=== PATIENT | male | born 1970 | race Caucasian/White ===

== ENCOUNTER 2016-09-05 11:06 | Inpatient (IN) | payer OTHER ==
[~2016-09-05] VITALS: Ht 180.3 cm; Wt 125.9 kg
[~2016-09-05 11:06] MED LIST: ACET500T3 PO; ATOR20TA15 PO; BUPR100T PO; CENTTAB PO; CINN500T PO; EMPA1TAB PO; LABE100T2 PO; LACTATED RINGER'S 1000 ML INJ 1,000 ML IV ONE; LISI20TA3 PO; METF500T PO; ONDANSETRON HCL 4 MG/2 ML VIAL IV PUSH ONE; PROPOFOL 200 MG/20 ML AMP IV ONE; VICT18IN SQ
[2016-09-05 11:30] LABS: HEMATOCRIT 44.1 % (39.0-51.0); MEAN CELL VOLUME 84.6 FL (80.0-100.0); MEAN CORPUSCULAR HEMOGLOBIN 28.9 PG (27.0-34.0); MEAN CORPUSCULAR HGB CONC 34.1 % (32.0-36.0); PLATELET COUNT 380 TH/MM3 (150-450); RED BLOOD COUNT 5.22 MIL/MM3 (4.50-5.90); RED CELL DISTRIBUTION WIDTH 13.1 % (11.6-17.2); REVIEW FLAG FINAL; WHITE BLOOD COUNT 10.2 TH/MM3 (4.0-11.0)
[2016-09-05] MEDS ORDERED: EXCETAB2 PO (11:54)
[2016-09-05 11:56] VITALS: BP 102/73; PULSE 79; RESP 16; TEMP 98.7; O2SAT 97
[2016-09-05] MEDS ORDERED: MIDAZOLAM HCL 2 MG/2 ML VIAL ONE (12:41)
[2016-09-05] MEDS ORDERED: FAMOTIDINE 20 MG/2 ML VIAL ONE (12:41)
[2016-09-05] MEDS ORDERED: ACETAMINOPHEN 1000 MG/100 ML VIAL IV ONE (12:41)
[2016-09-05] MEDS ORDERED: SODIUM CHLOR 0.9% 250 ML INJ 250 ML ONE (13:20)
[2016-09-05] MEDS ORDERED: VANCOMYCIN HCL 1000 MG VIAL ONE (13:20)
[2016-09-05] MEDS ORDERED: BUPIVACAINE/EPINEPHRINE 0.25% PF 30 ML VIAL ONE (14:21)
[2016-09-05] MEDS ORDERED: LACTATED RINGER'S 1000 ML INJ 1,000 ML ONE (15:05)
--- NOTE | 2016-09-05 16:21 | RADRPT ---
EXAM DATE/TIME: 09/05/2016 15:57 [facility] COMPARISON: No previous studies available for comparison. INDICATIONS : Post operative right knee. MEDICAL HISTORY : None. SURGICAL HISTORY : None. ENCOUNTER: Initial ACUITY: 1 day PAIN SCORE: Non-responsive. LOCATION: Right knee. FINDINGS: There is small amount of air in the knee. Lungs otherwise anatomic. CONCLUSION: Tracer in the otherwise negative Jesus Gurrola MD FACR on September 05, 2016 at 16:16 Board Certified Radiologist. This report was verified electronically.
[2016-09-05 16:37] VITALS: PULSE 88
[2016-09-05] MEDS ORDERED: MORPHINE SULFATE 4 MG/ML INJ ONE ×3 (16:41→17:03)
[2016-09-05] MEDS ORDERED: fentaNYL CITRATE 250 MCG/5 ML AMP ONE (16:46)
[2016-09-05] MEDS ORDERED: *HYDROmorphone PF 1 MG VIAL PERIprocedural Use ONLY ONE (17:22)
[2016-09-05] MEDS ORDERED: ACETAMINOPHEN 500 MG CPLT PO PRN (17:30)
[2016-09-05] MEDS ORDERED: PROMETHAZINE INJ 25 MG/ML VIAL IM PRN (17:30)
[2016-09-05] MEDS ORDERED: *Lactated Ringer's INJ 1,000 ML ONE (17:30)
[2016-09-05 18:00] VITALS: PULSE 87
[2016-09-05 20:00] VITALS: BP 110/61; PULSE 110; RESP 16; TEMP 96.6; O2SAT 94
[2016-09-05] MEDS: LABETALOL HCL 100 MG TAB PO SCH (21:01)
[2016-09-05] MEDS: metFORMIN HCL 500 MG TAB PO SCH (21:01)
[2016-09-05] MEDS: buPROPion HCL 100 MG SUSTAINED RELEASE TAB PO SCH (21:01)
[2016-09-05] MEDS: ACETAMINOPHEN/HYDROcodone 325 MG/7.5 MG TAB PO PRN (21:02)
[2016-09-05] MEDS: VANCOMYCIN 500 MG/NS 100 ML IV SCH ×2 (22:44)
[2016-09-05] MEDS: MORPHINE SULFATE 8 MG/ML INJ IM PRN (22:46)
[2016-09-06 00:35] VITALS: BP 126/57; PULSE 89; RESP 17; TEMP 98.2; O2SAT 92
[2016-09-06] MEDS: ACETAMINOPHEN/HYDROcodone 325 MG/7.5 MG TAB PO PRN (03:09)
[2016-09-06 03:12] VITALS: BP 118/73; PULSE 65; RESP 18; TEMP 97; O2SAT 95
[2016-09-06] MEDS: VANCOMYCIN 500 MG/NS 100 ML IV SCH ×4 (06:23→13:00)
[2016-09-06] MEDS: MORPHINE SULFATE 8 MG/ML INJ IM PRN ×3 (06:28→19:45)
[2016-09-06 08:00] VITALS: BP 118/78; PULSE 80; RESP 17; TEMP 97.8; O2SAT 95
[2016-09-06] MEDS: metFORMIN HCL 500 MG TAB PO SCH ×2 (08:31→17:42)
[2016-09-06] MEDS: LABETALOL HCL 100 MG TAB PO SCH ×2 (08:31→19:46)
[2016-09-06] MEDS: MULTIVITAMINS/MINERALS THERAPEUTIC TAB PO SCH (08:31)
[2016-09-06] MEDS: ATORVASTATIN 20 MG TAB PO SCH (08:31)
[2016-09-06] MEDS: buPROPion HCL 100 MG SUSTAINED RELEASE TAB PO SCH ×2 (08:32→19:46)
[2016-09-06] MEDS: LISINOPRIL 20 MG TAB PO SCH (08:32)
[2016-09-06] MEDS ORDERED: HYDROCHLOROTHIAZIDE 25 MG TAB PO SCH (09:00)
[2016-09-06] MEDS ORDERED: EMPAGLIFLOZIN 10 MG PO SCH (09:00)
[2016-09-06] MEDS ORDERED: LIRAGLUTIDE 18 MG/3 ML SQ SCH (09:00)
--- NOTE | 2016-09-06 10:06 | EKG ---
Date Performed: 09/05/2016 Time Performed: 13:20:18 PTAGE: 46 years EKG: Sinus rhythm NORMAL ECG NO PREVIOUS TRACING DOCTOR: Kamlesh Stacy Interpretating Date/Time 09/06/2016 10:03:19
[2016-09-06 11:47] VITALS: BP 118/66; PULSE 82; RESP 17; TEMP 97.6; O2SAT 93
--- NOTE | 2016-09-06 13:17 | PD.ORT.PN ---
Subjective Post Op Day #: 1 Subjective Remarks Patient has been painful. Not up yet. Physical therapy to work with patient later today Objective Vitals Vital Signs Date Time Temp Pulse Resp B/P Pulse Ox O2 Delivery O2 Flow Rate FiO2 09/06/16 11:47 97.6 82 17 118/66 93 09/06/16 08:00 97.8 80 17 118/78 95 09/06/16 04:00 Room Air 09/06/16 03:12 97.0 65 18 118/73 95 09/06/16 00:35 98.2 89 17 126/57 92 09/06/16 00:00 Room Air 09/05/16 20:00 96.6 110 16 110/61 94 09/05/16 20:00 Room Air 09/05/16 18:30 14 130/69 97 Room Air 09/05/16 18:15 85 14 123/77 97 Room Air 09/05/16 18:00 87 09/05/16 18:00 97.7 87 14 120/74 99 Nasal Cannula 2 09/05/16 17:45 84 14 119/65 98 Nasal Cannula 2 09/05/16 17:30 82 14 136/80 97 Nasal Cannula 2 09/05/16 17:15 79 14 136/77 98 Nasal Cannula 2 09/05/16 17:11 14 09/05/16 17:00 83 14 115/71 100 Nasal Cannula 2 09/05/16 16:45 85 14 123/79 97 Nasal Cannula 2 09/05/16 16:37 88 09/05/16 16:37 97.8 88 14 124/81 96 Nasal Cannula 2 I/O 09/05/16 09/05/16 09/05/16 09/06/16 09/06/16 09/06/16 07:00 15:00 23:00 07:00 15:00 23:00 Intake Total 2930 ml 720 ml Output Total 1750 ml 2300 ml Balance 1180 ml -1580 ml Intake Oral 480 ml 720 ml IV Total 100 ml Other 2350 ml Output Urine Total 1700 ml 2300 ml Estimated Blood Loss 50 ml # Voids 0 # Bowel Movements 0 0 Result Diagram: 09/05/16 1116 Imaging Last Impressions Knee X-Ray 09/05/16 0000 Signed Impressions: Service Date/Time: Monday, September 05, 2016 15:57 - CONCLUSION: Tracer in the otherwise negative Jesus G. Miles, MD FACR Objective Remarks Dressing changed today. Both incisions look good. Motion not tested today. N- V distally is intact. Assessment & Plan Ortho Post Op Day #: 1 Problem List: (1) ACL sprain Plan: Rehab today. Anticipate discharge home tomorrow. Will change to Tylenol #3 for pain. Jaleel Gillis MD Sep 06, 2016 13:17
[2016-09-06] MEDS: ACETAMINOPHEN/CODEINE 300 MG/30 MG TAB PO PRN ×2 (15:10→21:40)
[2016-09-06 15:57] VITALS: BP 115/73; PULSE 97; RESP 19; TEMP 95.3; O2SAT 98
[2016-09-06 20:00] VITALS: BP 123/65; PULSE 104; RESP 16; TEMP 98.9; O2SAT 94
[2016-09-07] VITALS: BP 113/67; PULSE 96; RESP 17; TEMP 98.2; O2SAT 94
[2016-09-07 08:00] VITALS: BP 104/66; PULSE 92; RESP 20; TEMP 97.8; O2SAT 95
[2016-09-07] MEDS: metFORMIN HCL 500 MG TAB PO SCH (08:26)
[2016-09-07] MEDS: ATORVASTATIN 20 MG TAB PO SCH (08:26)
[2016-09-07] MEDS: buPROPion HCL 100 MG SUSTAINED RELEASE TAB PO SCH ×2 (08:26→20:00)
[2016-09-07] MEDS: LISINOPRIL 20 MG TAB PO SCH (08:27)
[2016-09-07] MEDS: MULTIVITAMINS/MINERALS THERAPEUTIC TAB PO SCH (08:27)
[2016-09-07] MEDS: LABETALOL HCL 100 MG TAB PO SCH ×3 (08:27→22:05)
[2016-09-07] MEDS: ACETAMINOPHEN/CODEINE 300 MG/30 MG TAB PO PRN (08:28)
[2016-09-07 12:00] VITALS: BP 120/75; PULSE 93; RESP 20; TEMP 98.6; O2SAT 96
--- NOTE | 2016-09-07 15:16 | PD.ORT.PN ---
Subjective Post Op Day #: 2 Subjective Remarks Patient has been painful. Apparently patient was dizzy when getting up today. Discharge was planned but held due to this. Currently patient is relaxing in bed and reports that pain is not too bad. Objective Vitals Vital Signs Date Time Temp Pulse Resp B/P Pulse Ox O2 Delivery O2 Flow Rate FiO2 09/07/16 12:00 98.6 93 20 120/75 96 09/07/16 08:20 Room Air 09/07/16 08:00 97.8 92 20 104/66 95 09/07/16 00:00 98.2 96 17 113/67 94 09/06/16 20:00 98.9 104 16 123/65 94 09/06/16 15:57 95.3 97 19 115/73 98 I/O 09/06/16 09/06/16 09/06/16 09/07/16 09/07/16 09/07/16 07:00 15:00 23:00 07:00 15:00 23:00 Intake Total 720 ml 480 ml 240 ml 360 ml Output Total 2300 ml 700 ml 800 ml Balance -1580 ml -220 ml 240 ml -440 ml Intake Oral 720 ml 480 ml 240 ml 360 ml Output Urine Total 2300 ml 700 ml 800 ml # Voids 1 # Bowel Movements 0 0 0 0 Result Diagram: 09/05/16 1116 Imaging Last Impressions Knee X-Ray 09/05/16 0000 Signed Impressions: Service Date/Time: Monday, September 05, 2016 15:57 - CONCLUSION: Tracer in the otherwise negative Jesus Gurrola MD FACR Objective Remarks Dressing has been changed today and reportedly incisions look good. Motion not tested today. N-V distally is intact. Assessment & Plan Problem List: (1) ACL sprain Plan: Will have medical physician for dizziness. Hold discharge for now. Jaleel Gillis MD Sep 07, 2016 15:16
[2016-09-07] MEDS ORDERED: WALKER WHEELS/F1 MIS (15:20)
[2016-09-07] MEDS ORDERED: DEXTROSE 50% IN WATER 50 ML VIAL(D50) IV PUSH PRN (15:45)
[2016-09-07] MEDS ORDERED: GLUCAGON 1 MG/ML VIAL OTHER PRN (15:45)
[2016-09-07] MEDS: INSULIN NovoLIN REGULAR SUPPLEMENTAL SCALE SQ SCH ×2 (16:00→20:01)
[2016-09-07 16:12] VITALS: BP_SYST 132; BP_SYST 96; BP_DIAS 79; BP_DIAS 81; PULSE 94; RESP 20; TEMP 99.6; O2SAT 99
--- NOTE | 2016-09-07 16:15 | PD.CONS ---
[facility] Reason for Consult Syncope Primary Care Physician Ronen Barker Diagnoses: History of Present Illness 46 years old male who was admitted for right LCA sprain status post arthroscopic repair by orthopedic service, patient was about to be discharged when he sustained a syncope episode with dizziness while he was in the bathroom. Patient and his explained that he start losing awareness of the environment and then he passed out for 5 minutes, followed by a period of lucency and he wasn't sure what was going on forward he was at. Patient denied any previous chest pain or short of breath or sweating or diaphoresis right after the episode, he did have feeling of dizziness. No abdominal pain diarrhea or constipation. Patient is still on metformin and Victoza and other anti-hyperglycemic oral medication, he is part of clinical trial. However after discussing with the patient and with the nurse, Accu-Chek was within normal limits around the episode which make hypoglycemia kind of unlikely. What is significant as patient reported previous similar episodes of dizziness however he denied losing consciousness at the time, with those episodes he denied any passing urine or stool biting tongue shaking movement. He attributed it to being on the boat or being dehydrated. Also per the patient and the he has episodes of sleepiness during the day (narcolepsy) and when I advised the patient about doing a sleep study he admitted that he was advised to do so multiple times by his PCP, but he's not convinced with the idea of wearing a C Pap in the test was positive Review of Systems Other All 10 systems reviewed and was positive for what is mentioned in history of present illness otherwise negative Past Family Social History Allergies: Coded Allergies: Amoxicillin (Verified Allergy, Unknown, 09/05/16) Uncoded Allergies: ALL CILLINS (Allergy, Unknown, 09/05/16) TOLD A CHILD TO NEVER HAVE ANY MED CONTAINING CILLINS Past Medical History H/O episodes of dizziness no other medical problems that the patient wear off Family History Denied being aware of any medical problem running in the family Social History Patient chewed tobacco, he stated he binge drinking occasionally "8 beers when he is on the boat" Physical Exam Vital Signs Vital Signs Date Time Temp Pulse Resp B/P Pulse Ox O2 Delivery O2 Flow Rate FiO2 09/07/16 12:00 98.6 93 20 120/75 96 09/07/16 08:20 Room Air 09/07/16 08:00 97.8 92 20 104/66 95 09/07/16 00:00 98.2 96 17 113/67 94 09/06/16 20:00 98.9 104 16 123/65 94 Physical Exam GENERAL: This is a well-nourished, well-developed patient, in no apparent distress. SKIN: No rashes, warm and dry HEAD: Atraumatic. Normocephalic. EYES: Pupils equal round and reactive. Extraocular motions intact. No scleral icterus. ENT: Nose without bleeding, or drainage, Airway patent. NECK: Trachea midline. Supple CARDIOVASCULAR: Regular rate and rhythm without murmurs, gallops, or rubs. RESPIRATORY: Fair air entry bilaterally. No wheezes, rales, or rhonchi. GASTROINTESTINAL: Abdomen soft, non-tender, nondistended. Positive bowel sounds MUSCULOSKELETAL: Extremities without clubbing, cyanosis, or edema. Pedal pulses appreciated NEUROLOGICAL: Awake and alert. Cranial nerves II-12 intact, strength 5 out of 5 both upper and left lower extremity, right lower extremity did not examine due to the surgery. Normal speech.no focal neurological deficit Result Diagram: 09/05/16 1116 Imaging Last Impressions Knee X-Ray 09/05/16 0000 Signed Impressions: Service Date/Time: Monday, September 05, 2016 15:57 - CONCLUSION: Tracer in the otherwise negative Jesus Gurrola MD FACR Assessment and Plan Assessment and Plan 46 years old admit for right ALC sprain arthroscopic repair who sustained syncope while he was in the bathroom rule out micturition/defecation syncope, patient has a body habitus who can be candidate for obstructive sleep apnea, he denied any symptoms related to chest pain or palpitation. No signs seizure associated symptoms however he had a lucency. After the episodes. Will check EKG, EEG, 2-D echo, Holter monitor, ultrasound of the carotid Will hold metformin Orthostatic blood pressure BMP, CBC, TSH Patient will need to follow up with his PCP for polysomnography/sleep study for his possible narcolepsy problem D/W patient and his in details We will follow patient along with you thank for this consultation Discussed Condition With Patient and his Abraham Mathews MD Sep 07, 2016 16:15
[2016-09-07] MEDS: ACETAMINOPHEN/HYDROcodone 325 MG/7.5 MG TAB PO PRN ×2 (16:26→23:10)
[2016-09-07] MEDS: ONDANSETRON ODT 4 MG TAB PO PRN ×2 (17:35→23:11)
[2016-09-07 18:32] LABS: POTASSIUM 3.6 MEQ/L (3.5-5.1)
[2016-09-07 20:00] VITALS: BP 121/91; PULSE 95; RESP 17; TEMP 97; O2SAT 96
[2016-09-08 00:26] VITALS: BP 125/85; PULSE 95; RESP 16; TEMP 97.3; O2SAT 94
--- NOTE | 2016-09-08 00:40 | RADRPT ---
EXAM DATE/TIME: 09/07/2016 21:43 [facility] COMPARISON: No previous studies available for comparison. INDICATIONS : Syncope. MEDICAL HISTORY : Hypertension. Diabetes mellitus type 2. Arthritis. Anxiety. SURGICAL HISTORY : Tonsillectomy. Vasectomy. Bilateral knee arthroscopy. ENCOUNTER: Initial ACUITY: 2 days PAIN SCORE: 6/10 LOCATION: Bilateral neck PEAK SYSTOLIC VELOCITIES (cm/sec): ICA/CCA RATIO: Right: 0.9 Left: 0.9 ICA: Right: 101 Left: 105 CCA: Right: 111 Left: 112 ECA: Right: 103 Left: 105 VERTEBRAL: Right: 70 antegrade Left: 78 antegrade Elevated flow velocities and ICA/CCA ratios have been found to correlate with increased degrees of vessel stenosis, calculated as percentage of diameter relative to a normal segment of distal ICA/CCA FINDINGS: RIGHT CAROTID: No significant stenosis is visualized. The waveforms are within normal limits. LEFT CAROTID: No significant stenosis is visualized. The waveforms are within normal limits. VERTEBRAL ARTERIES: Antegrade flow is seen in both vertebral arteries. MISCELLANEOUS: 10 mm cyst with nodule left lobe thyroid mass. CONCLUSION: No evidence of flow-limiting carotid stenosis. Left thyroid nodule. Follow up with dedicated thyroid sonography recommended electively Dangelo Mera MD on September 08, 2016 at 0:37 Board Certified Radiologist. This report was verified electronically.
[2016-09-08 05:24] LABS: BICARBONATE 28.4 MEQ/L (21.0-32.0); POTASSIUM 3.6 MEQ/L (3.5-5.1)
[2016-09-08] MEDS: INSULIN NovoLIN REGULAR SUPPLEMENTAL SCALE SQ SCH ×4 (06:24→21:09)
[2016-09-08] MEDS: MULTIVITAMINS/MINERALS THERAPEUTIC TAB PO SCH (07:56)
[2016-09-08] MEDS: ATORVASTATIN 20 MG TAB PO SCH (07:56)
[2016-09-08] MEDS: buPROPion HCL 100 MG SUSTAINED RELEASE TAB PO SCH ×2 (07:56→21:08)
[2016-09-08] MEDS: ACETAMINOPHEN/HYDROcodone 325 MG/7.5 MG TAB PO PRN ×3 (07:56→21:09)
[2016-09-08] MEDS: ONDANSETRON ODT 4 MG TAB PO PRN ×3 (07:56→21:09)
--- NOTE | 2016-09-08 07:56 | MP ---
cc: NICK MADDEN MD DATE OF SURGERY 09/05/2016 ATTENDING PHYSICIAN/SURGEON MD [place] PREOPERATIVE DIAGNOSIS Right knee partial tear ACL. POSTOPERATIVE DIAGNOSIS Right knee partial tear ACL. PROCEDURE Right knee arthroscopy with ACL augmentation using central third patellar tendon. PROCEDURE IN DETAIL Informed consent was obtained. The patient was taken to the operating room, placed in the supine position on the operating table. He was administered general anesthesia by the Dr. Zuleta of the Anesthesia Department. His right leg was examined under anesthesia. The patient did have a positive anterior drawer and a 1+ pivot shift in the right leg under aneshtesia. There was no posterior drawer or significant medial or lateral instability. At that time a tourniquet was applied about the right thigh and the right leg was prepped with Betadine soap, followed by Betadine paint. Draping commenced with sterile down sheets, sterile towel about the tourniquet, split sheets, stockinette was applied over the foot and calf and this was wrapped with a Coban. An extremity drape was then applied. The table was elevated to maximum height. A time-out was held and confirmed. The patient had been given vancomycin 1 gram prior to the initiation of the operative procedure. At that time the tourniquet was inflated to 300 mmHg. The leg was allowed to flex over the side of the operating table. An 18-gauge spinal needle was then placed in the region of the lateral infrapatellar portal. This region was infiltrated with 4 cc of 0.25% Marcaine with epinephrine. Infiltration was also performed into the medial infrapatellar portal and transpatellar tendon portal. A small incision was made with an 11 blade in the region of the transpatellar tendon portal. In-flow cannula was placed. A second incision was placed in the region of the lateral infrapatellar portal and the arthroscopic cannula was placed. Diagnostic arthroscopy commenced. The medial compartment was examined. The medial meniscus did not demonstrate a tear. There was a small area in Zone II of the medial meniscus on the medial side where there was some calcification noted on the superior and inferior surface of the meniscus consistent with possible mild chodrocalcinosis. The scope was then maneuvered into the edge of the lateral compartment. The leg was placed in a figure-four position. There was evidence of a prior partial lateral meniscectomy. There were some mild degenerative changes noted on the lateral femoral condyle. The lateral tibial plateau and the popliteus tendon appeared intact. Next, the scope was placed in the intercondylar notch. The anterior cruciate ligament was probed. There was approximately a 60% tear of the ACL noted and approximately 40% of the fibers were still intact. There was slight laxity to a portion of this; however, most of the remaining fibers were tight. There was noted some laxity on his clinical examination. The PCL appeared intact. The scope was placed in the suprapatellar pouch. This appeared normal. The undersurface of the patella and trochlear groove appeared normal. At that time it was decided to proceed with ACL augmentation. A bur was utilized to approach the medial femoral condyle lateral side and the bxmf-pqn-lax guide was placed. The Acufex rear-entry guide was hooked to the [id number]-[id number] guide through a small lateral incision and the bdyc-sfh-kfb guide was brought into the knee. A guidepin was placed, then over-reamed with a 9-mm reamer. This was just lateral to the insertions of the ACL which were still left intact. This hole was plugged. The distal portal was placed just anterior to the bundle of the ACL insertion on the tibia. A guidepin was placed; this was over-reamed with a 9-mm reamer and again the hole was plugged. A suture was placed through both tunnels and clamped. At that time the patellar tendon was exposed and a graft consisting of the central third of patellar tendon was obtained. Bone plugs were obtained from the proximal and distal ends. Holes were placed through the bone plugs with a #5 Ticron suture which was woven into the graft. At that time the graft was attached to the suture and pulled into position. The proximal and distal fixation with 20 x 9-mm Bio-Absorbable Interference screws from the [employer] Mind[employer] were utilized. At that time the tourniquet was deflated; total tourniquet time was 85 minutes. The wounds were then closed with #1 Vicryl, 0 Vicryl, 2-0 Vicryl, 3-0 plain and 4-0 nylon interrupted stitches using the Allgower stitch. X-rays were obtained prior to leaving the operative suite demonstrating no specific abnormalities. Once the sutures were in place, Steri-Strips, 4x4s, Sof-Rol and Bravo wraps were applied. The patient was placed in a canvas knee splint. The patient tolerated the procedure well and was then taken to the recovery room in stable condition. At the completion of the procedure, sponge counts, instrument counts and needle counts were all correct. Estimated blood loss was 10 cc. Total tourniquet time was 85 minutes. MD INES Yeung/ADRIEL /4:44 PM /7:30 AM
[2016-09-08] MEDS: LISINOPRIL 20 MG TAB PO SCH (07:57)
[2016-09-08] MEDS: LABETALOL HCL 100 MG TAB PO SCH ×2 (07:57→21:08)
[2016-09-08 08:06] VITALS: BP 104/70; PULSE 89; RESP 16; TEMP 99.7; O2SAT 95
--- NOTE | 2016-09-08 12:29 | HHI.PR ---
Subjective Remarks doing well , no more episodes of dizziness I counseled the patient extensively about keeping himself hydrated, wearing elastic stocking, doing sleep study, taking precaution when he moved bowel or urinary Objective Vitals Vital Signs Date Time Temp Pulse Resp B/P Pulse Ox O2 Delivery O2 Flow Rate FiO2 09/08/16 08:06 99.7 89 16 104/70 95 09/08/16 07:50 Room Air 09/08/16 00:26 97.3 95 16 125/85 94 09/07/16 20:00 97.0 95 17 121/91 96 09/07/16 16:12 99.6 94 20 132/79 99 121/88 96/81 I/O 09/07/16 09/07/16 09/07/16 09/08/16 09/08/16 09/08/16 07:00 15:00 23:00 07:00 15:00 23:00 Intake Total 360 ml 240 ml 480 ml Output Total 800 ml Balance -440 ml 240 ml 480 ml Intake Oral 360 ml 240 ml 480 ml Output Urine Total 800 ml # Voids 6 2 # Bowel Movements 0 0 0 Result Diagram: 09/05/16 1116 09/08/16 0350 Objective Remarks GENERAL: This is a well-nourished, well-developed patient, in no apparent distress. SKIN: No rashes, warm and dry HEAD: Atraumatic. Normocephalic. EYES: Pupils equal round and reactive. Extraocular motions intact. No scleral icterus. ENT: Nose without bleeding, or drainage, Airway patent. NECK: Trachea midline. Supple CARDIOVASCULAR: Regular rate and rhythm without murmurs, gallops, or rubs. RESPIRATORY: Fair air entry bilaterally. No wheezes, rales, or rhonchi. GASTROINTESTINAL: Abdomen soft, non-tender, nondistended. Positive bowel sounds MUSCULOSKELETAL: Extremities without clubbing, cyanosis, or edema. Pedal pulses appreciated NEUROLOGICAL: Awake and alert. Moves all extremity. Normal speech.no focal neurological deficit A/P Assessment and Plan 46 years old admit for right ALC sprain arthroscopic repair who sustained syncope while he was in the bathroom rule out micturition/defecation syncope, patient has a body habitus who can be candidate for obstructive sleep apnea, he denied any symptoms related to chest pain or palpitation. No signs seizure associated symptoms however he had a lucency. After the episodes. EKG, ultrasound of the carotid unremarkable hold metformin while in hospital Orthostatic blood pressure positive>> recommended CANDY hose stocking, good hydration, precaution when desiccating or urinating, also will decrease his labetalol dose to 50 mg twice a day, and lisinopril to 10 mg daily considering blood pressure is on the lower side BMP, CBC, TSH reviewed unremarkable Patient will need to follow up with his PCP for polysomnography/sleep study for his possible narcolepsy problem EEG, 2-D echo, Holter monitor has been already done, patient can be discharged to follow up as an outpatient with his PCP Abraham Mathews MD Sep 08, 2016 12:29
[2016-09-08 12:50] VITALS: BP 143/93; PULSE 90; RESP 16; TEMP 98.4; O2SAT 96
--- NOTE | 2016-09-08 14:18 | EC ---
Study Study Date:09/08/2016 STUDY CONCLUSIONS SUMMARY - Procedure narrative: Transthoracic echocardiography. Image quality was fair. Scanning was performed from the parasternal, apical, and subcostal acoustic windows. - Left ventricle: The cavity size was normal. Wall thickness was normal. Systolic function was normal. The estimated ejection fraction was in the range of 60% to 65%. Although no diagnostic regional wall motion abnormality was identified, this possibility cannot be completely excluded on the basis of this study. - Tricuspid valve: Trace regurgitation. - Pulmonary arteries: PA peak pressure: 35mm Hg (S). If LV function is below 40, please consider prescribing an ACEI or ARB or document rationale for non-use. PROCEDURE DATA STUDY STATUS: Elective. Procedure: Transthoracic echocardiography. Image quality was fair. Scanning was performed from the parasternal, apical, and subcostal acoustic windows. Study completion: The patient tolerated the procedure well. Transthoracic echocardiography. M-mode, complete 2D, complete spectral Doppler, and color Doppler. Patient status: Inpatient. CARDIAC ANATOMY LEFT VENTRICLE: The cavity size was normal. Wall thickness was normal. Systolic function was normal. The estimated ejection fraction was in the range of 60% to 65%. Although no diagnostic regional wall motion abnormality was identified, this possibility cannot be completely excluded on the basis of this study. AORTIC VALVE: Trileaflet; normal thickness leaflets. Doppler: Transvalvular velocity was within the normal range. There was no stenosis. No regurgitation. AORTA: Aortic root: The aortic root was normal in size. MITRAL VALVE: Structurally normal valve. Doppler: Transvalvular velocity was within the normal range. There was no evidence for stenosis. No regurgitation. LEFT ATRIUM: The atrium was normal in size. RIGHT VENTRICLE: The cavity size was normal. Wall thickness was normal. PULMONIC VALVE: Doppler: Transvalvular velocity was within the normal range. There was no evidence for stenosis. No regurgitation. TRICUSPID VALVE: Structurally normal valve. Doppler: Transvalvular velocity was within the normal range. Trace regurgitation. PULMONARY ARTERY: The main pulmonary artery was normal-sized. Systolic pressure was within the normal range. RIGHT ATRIUM: The atrium was normal in size. PERICARDIUM: There was no pericardial effusion. SYSTEMIC VEINS: Inferior vena cava: The vessel was normal in size. BASIC MEASUREMENTS ADULT NORMAL Left ventricle LV internal dimension, ED, chordal level, 43.2 mm 43-52 PLAX LV internal dimension, ES, chordal level, 26 mm 23-38 PLAX Fractional shortening, chordal level, PLAX 40 % >29 LV posterior wall thickness, ED 8.8 mm IVS/LVPW ratio, ED 1.26 <1.3 Ventricular septum Septal thickness, ED 11.1 mm Aortic valve Leaflet separation *29 mm 15-26 Right ventricle RV internal dimension, ED, PLAX 25.8 mm 19-38 BASIC MEASUREMENTS ADULT NORMAL Aortic valve Leaflet separation *29 mm 15-26 Aorta Root diameter, ED *39 mm 20-37 Left atrium Anterior-posterior dimension, ES *41 mm 19-40 LA/aortic root ratio 1.05 DOPPLER MEASUREMENTS ADULT NORMAL Main pulmonary artery Pressure, S *35 mm Hg =30 Tricuspid valve Regurgitant peak velocity 252 cm/s Peak RV-RA gradient, S 25 mm Hg Maximal regurgitant velocity 252 cm/s Systemic veins Estimated CVP 10 mm Hg Right ventricle RV pressure, S *35 mm Hg <30 LEGEND: Mean values are shown as u=mean value. Asterisk (*) catalan values outside specified normal range. Prepared and signed by Deric Pagan [id number]
[2016-09-08] MEDS ORDERED: LABE100T2 PO (18:21)
[2016-09-08] MEDS ORDERED: LISI10TA3 PO (18:21)
[2016-09-08] MEDS ORDERED: ONDA4TAB7 PO (18:21)
--- NOTE | 2016-09-08 18:27 | PD.ORT.PN ---
Subjective Post Op Day #: 3 Subjective Remarks Patient has been painful. Apparently patient was dizzy yesterday- has been seen by certified ophthalmic medical technician and better today. Currently has Holter on and discharge was planned but held due to this. Currently patient reports that pain is better. Objective Vitals Vital Signs Date Time Temp Pulse Resp B/P Pulse Ox O2 Delivery O2 Flow Rate FiO2 09/08/16 12:50 98.4 90 16 143/93 96 09/08/16 08:06 99.7 89 16 104/70 95 09/08/16 07:50 Room Air 09/08/16 00:26 97.3 95 16 125/85 94 09/07/16 20:00 97.0 95 17 121/91 96 I/O 09/07/16 09/07/16 09/07/16 09/08/16 09/08/16 09/08/16 07:00 15:00 23:00 07:00 15:00 23:00 Intake Total 360 ml 240 ml 480 ml 1080 ml Output Total 800 ml Balance -440 ml 240 ml 480 ml 1080 ml Intake Oral 360 ml 240 ml 480 ml 1080 ml Output Urine Total 800 ml # Voids 6 2 4 # Bowel Movements 0 0 0 Result Diagram: 09/05/16 1116 09/08/16 0350 Imaging Last Impressions Knee X-Ray 09/05/16 0000 Signed Impressions: Service Date/Time: Monday, September 05, 2016 15:57 - CONCLUSION: Tracer in the otherwise negative Jesus Gurrola MD FACR Objective Remarks Dressing changed and incisions look good. Motion -5 to 45 degrees today. N-V distally is intact. Assessment & Plan Ortho Post Op Day #: 3 Problem List: (1) ACL sprain Plan: Hold discharge for now. Anticipate Discharge tomorrow Jaleel Gillis MD Sep 08, 2016 18:27
[2016-09-08] MEDS: MAGNESIUM HYDROXIDE SUSP 30 ML CUP PO PRN (18:51)
[2016-09-08 20:55] VITALS: BP 114/88; PULSE 106; RESP 16; TEMP 98.7; O2SAT 98
--- NOTE | 2016-09-08 21:13 | EKG ---
Date Performed: 09/07/2016 Time Performed: 16:54:44 PTAGE: 46 years EKG: Sinus rhythm NORMAL ECG PREVIOUS TRACING : 09/05/2016 13.20 DOCTOR: Cas De La Paz Interpretating Date/Time 09/08/2016 21:06:10
--- NOTE | 2016-09-08 21:28 | MG ---
cc: FAWN GUERRERO MD Lab No: [id number] Date: 09/08/16 Age: 46 Sex: M Race: DATE OF : 1970 INDICATION A 46-year-old. History of hypertension, anxiety, syncopal type episode. DESCRIPTION OF RECORD Well-formed alpha activity in the posterior rhythm showing 8-9 Hz, 20-50 microvolts activity. Low amplitude being in the frontal channels. Good anterior to posterior gradient. Good EEG variability reactivity. Reasonable driving with photic stimulation at the beginning. No cardiac dysrhythmia noted. INTERPRETATION Normal awake EEG. Clinical correlation. MD KYLE Wing/BJ[facility] /8:25 PM /9:21 PM
[2016-09-09 00:30] VITALS: BP 108/69; PULSE 84; RESP 16; TEMP 99.4; O2SAT 95
[2016-09-09 04:50] VITALS: BP 132/74; PULSE 90; RESP 17; TEMP 97.5; O2SAT 94
[2016-09-09] MEDS: ONDANSETRON ODT 4 MG TAB PO PRN (04:57)
[2016-09-09] MEDS: ACETAMINOPHEN/HYDROcodone 325 MG/7.5 MG TAB PO PRN ×2 (04:57→10:22)
[2016-09-09] MEDS: INSULIN NovoLIN REGULAR SUPPLEMENTAL SCALE SQ SCH (05:54)
[2016-09-09 08:05] VITALS: BP 135/90; PULSE 87; RESP 20; TEMP 96.9; O2SAT 97
[2016-09-09] MEDS: MAGNESIUM HYDROXIDE SUSP 30 ML CUP PO PRN (08:28)
[2016-09-09] MEDS: buPROPion HCL 100 MG SUSTAINED RELEASE TAB PO SCH (08:28)
[2016-09-09] MEDS: ATORVASTATIN 20 MG TAB PO SCH (08:28)
[2016-09-09] MEDS: MULTIVITAMINS/MINERALS THERAPEUTIC TAB PO SCH (08:28)
[2016-09-09] MEDS: LABETALOL HCL 100 MG TAB PO SCH (08:29)
[2016-09-09] MEDS ORDERED: LISINOPRIL 10 MG TAB PO SCH (09:00)
--- NOTE | 2016-09-09 16:04 | HHI.PR ---
Subjective Remarks patient doing well no more episodes of dizziness or syncope he was cleared medically yesterday to be discharged for follow-up as outpatient Objective Vitals Vital Signs Date Time Temp Pulse Resp B/P Pulse Ox O2 Delivery O2 Flow Rate FiO2 09/09/16 08:05 96.9 87 20 135/90 97 09/09/16 04:50 97.5 90 17 132/74 94 09/09/16 00:30 99.4 84 16 108/69 95 09/08/16 20:55 98.7 106 16 114/88 98 I/O 09/08/16 09/08/16 09/08/16 09/09/16 09/09/16 09/09/16 07:00 15:00 23:00 07:00 15:00 23:00 Intake Total 480 ml 1080 ml 480 ml 480 ml Output Total 600 ml 725 ml Balance 480 ml 1080 ml -120 ml -245 ml Intake Oral 480 ml 1080 ml 480 ml 480 ml Output Urine Total 600 ml 725 ml # Voids 2 4 # Bowel Movements 0 0 0 Result Diagram: 09/05/16 1116 09/08/16 0350 Objective Remarks GENERAL: This is a well-nourished, well-developed patient, in no apparent distress. SKIN: No rashes, warm and dry HEAD: Atraumatic. Normocephalic. EYES: Pupils equal round and reactive. Extraocular motions intact. No scleral icterus. ENT: Nose without bleeding, or drainage, Airway patent. NECK: Trachea midline. Supple CARDIOVASCULAR: Regular rate and rhythm without murmurs, gallops, or rubs. RESPIRATORY: Fair air entry bilaterally. No wheezes, rales, or rhonchi. GASTROINTESTINAL: Abdomen soft, non-tender, nondistended. Positive bowel sounds MUSCULOSKELETAL: Extremities without clubbing, cyanosis, or edema. Pedal pulses appreciated NEUROLOGICAL: Awake and alert. Moves all extremity. Normal speech.no focal neurological deficit A/P Assessment and Plan 46 years old admit for right ALC sprain arthroscopic repair who sustained syncope while he was in the bathroom rule out micturition/defecation syncope, patient has a body habitus who can be candidate for obstructive sleep apnea, he denied any symptoms related to chest pain or palpitation. No signs seizure associated symptoms however he had a lucency. After the episodes. EKG, ultrasound of the carotid unremarkable hold metformin while in hospital Orthostatic blood pressure positive>> recommended CANDY hose stocking, good hydration, precaution when desiccating or urinating, also will decrease his labetalol dose to 50 mg twice a day, and lisinopril to 10 mg daily considering blood pressure is on the lower side BMP, CBC, TSH reviewed unremarkable Patient will need to follow up with his PCP for polysomnography/sleep study for his possible narcolepsy problem EEG, 2-D echo reviewed within normal limits, Holter monitor applied patient can be discharged to follow up as an outpatient with his PCP Abraham Mathews MD Sep 09, 2016 16:04
--- NOTE | 2016-09-13 00:06 | HM ---
Date Performed: 09/08/2016 Time Performed: 09:36:00 HOOKUP DATE: 09/08/16 09:36:00 AM [facility] ANALYSIS START TIME: 09/08/2016 9:41:00 AM ANALYSIS END TIME: 09/09/2016 9:44:59 AM PATIENT AGE: 46 PATIENT HEIGHT PATIENT WEIGHT DRUG LIST PATIENT DIAGNOSIS: poss acl TEST NARRATIVE: The patient's average heart rate was 91 BPM. Heart rates greater than 120 B PM were noted < 1% of the time. No episodes of bradycardia were noted. No pauses exceeding 2.0 s econds were noted. 2 ventricular ectopics, which represented < 1% of the total beat count, were n oted. The highest ventricular ectopic frequency occurred from 05:00 PM to 06:00 PM [facility]. During this time 1 VE(s) occurred. Ventricular ectopics were observed as 2 isolated beat(s) only. No couplets or runs were noted. No supraventricular ectopics were noted. No episodes of ST depression (de fined as -1.0 mm or more) were noted in channel 1. No episodes of ST depression (defined as -1.0 mm or more) were noted in channel 2. No episodes of ST depression (defined as -1.0 mm or more) were not ed in channel 3. TEST INTERPRETATION: 1) Normal Sinus rhythm 2) Very rare PVC, no PACs 3) No ST depressions noted 4) Normal Holter monitor Signed by : Enrico Velásquez
--- NOTE | 2016-09-22 13:14 | HHI.DS ---
Discharge Summary Admission Date Sep 08, 2016 at 18:16 Discharge Date: Sep 09, 2016 Admitting Diagnosis Right Knee- Partial Tear ACL Diagnosis: (1) ACL sprain Diagnosis: Principal Procedures Right Knee: Arthroscopy with ACL augmentation with Central Third Patella Tendon Brief History This is a 46 year old male patient with injury to right knee. Progressive clinical instability. PE at Discharge Dressing changed and incisions look good. Motion -5 to 45 degrees today. N-V distally is intact. Hospital Course Patient progressed well with his knee. He experienced some dizziness and was evaluated and treated by Hospitalist. Pt Condition on Discharge: Good Discharge Disposition: Discharge Home Discharge Instructions Diet Instructions: Diabetic Diet Activities You Can Perform: Weight Bearing as Jaleel Farr MD Sep 22, 2016 13:14
== END 2016-09-09 10:31 | disposition home or self-care (01) | DRG 983 ==
LOC: CSDC 11:06 → INTOOBSV 19:12 → N06A 19:12 → OBSVTOIN 19:12
PROVIDERS: ADMIT Orthopaedic Surgery; ATTEND Orthopaedic Surgery
PROC: 0MUN47Z Supplement Right Knee Bursa and Ligament with Autologous Tissue Substitute, Percutaneous Endoscopic Approach (ICD-10-PCS; principal; 2016-09-05 13:50)
DX: R55 Syncope and collapse (principal); I10 Essential (primary) hypertension; S83.511A Sprain of anterior cruciate ligament of right knee, initial encounter; R42 Dizziness and giddiness; E78.5 Hyperlipidemia, unspecified; E11.9 Type 2 diabetes mellitus without complications; R11.0 Nausea; E66.9 Obesity, unspecified; Z68.38 Body mass index [BMI] 38.0-38.9, adult; Z79.84 Long term (current) use of oral hypoglycemic drugs; Z00.6 Encounter for examination for normal comparison and control in clinical research program; Z87.891 Personal history of nicotine dependence; Z88.0 Allergy status to penicillin
CPT/HCPCS: 36415; 73560; 80048; 82948; 84443; 85027; 93005; 93225; 93226; 93306; 93880; 95819; C1713; G8987-GP; G8988-GP; J0131; J1170; J2250; J2270; J2405; J3010; J3370; J7050; J7120; L1830